=== PATIENT | male | born 1970 | race Caucasian/White ===

== ENCOUNTER 2018-09-26 14:55 | Emergency (ER) | payer MEDICAID ==
[~2018-09-26] VITALS: Ht 180.3 cm; Wt 117.9 kg
--- NOTE | ~2018-09-26 | EKG ---
[place], [place] ELECTROCARDIOGRAM REPORT NAME: CAPO GARCIA UNIT #: [id number] ROOM: DOCTOR: EPIPHANY DRAFT REPORT BIRTHDATE: [birth year] [facility] Test Date: 2018-09-26 Test Time: 14:59:49 Pat Name: CAPO GARCIA Department: Room: Gender: Ac/Dc Rewinder: : 1970 Requested By: STEVEN GUTIÉRREZ Order Number: [id number] Reading MD: Francisco Negro MD Measurements Intervals Brillion Rate: 118 P: 80 CO: 150 QRS: 65 QRSD: 81 T: 58 QT: 305 QTc: 428 Interpretive Statements Sinus tachycardia Probable left atrial enlargement Electronically Signed On 09-27-2018 12:42:33 PDT by Francisco Negro MD CM:EKGRPT:ELECTROCARDIOGRAM REPORT [id number] STEVEN GARCIA DRAFT REPORT STEVEN GUTIÉRREZ MD
[2018-09-26 15:13] LABS: BASO # 0.1 10*3/uL (0.0-0.1); BASO % 0.8 % (0.0-1.0); EOS # 0.3 10*3/uL (0.0-0.4); EOS % 3.4 % (1.0-4.0); HEMATOCRIT 48.6 % (42.0-52.0); HEMOGLOBIN 15.5 g/dl (14.0-18.0); LYMPH # 2.6 10*3/uL (1.3-4.4); LYMPH % 30.6 % (27.0-41.0); MEAN CELL VOLUME 87.3 fl (80.0-94.0); MEAN CORPUSCULAR HGB 27.8 pg (27.0-31.0); MEAN CORPUSCULAR HGB CONC 31.9 g/dl (33.0-37.0); MEAN PLATELET VOLUME 10.5 fl (9.6-12.3); MONO # 0.5 10*3/uL (0.1-1.0); MONO % 5.9 % (3.0-9.0); NEUT # 4.9 10*3/uL (2.3-7.9); NEUT % 59.1 % (47.0-73.0); PLATELET COUNT AUTOMATED 311 10*3/uL (130-400); RED BLOOD COUNT 5.57 10*6/uL (4.50-5.90); RED CELL DISTRI WIDTH 14.4 % (0-14.5); WHITE BLOOD COUNT 8.3 10*3/uL (4.8-10.8)
[2018-09-26 15:22] LABS: ACT PARTIAL THROMBO TIME 26.6 SECONDS (20.8-31.5); INTERNATIONAL NORM RATIO 1.1 (2.0-3.5)
[2018-09-26 15:39] VITALS: BP 152/99
[2018-09-26 15:42] LABS: ALBUMIN 3.8 gm/dl (3.1-4.5); ALKALINE PHOSPHATASE 129 U/L (45-117); BUN 12 mg/dl (7-24); CHLORIDE 107 mmol/L (98-107); CREATININE 0.99 mg/dL (0.70-1.30); POTASSIUM 4.3 mmol/L (3.5-5.1); SGOT/AST 17 IU/L (3-35); SGPT/ALT 30 U/L (12-78); SODIUM 141 mmol/L (136-145); TOTAL PROTEIN 8.7 gm/dL (6.4-8.2)
[2018-09-26 15:44] LABS: TROPONIN I < 0.015 ng/ml (<0.045)
[2018-09-26] MEDS ORDERED: PREDNISONE50 MG PO (15:58)
[2018-09-26] MEDS ORDERED: Ipratropium Brom3 ML INH (15:58)
[2018-09-26] MEDS ORDERED: PROVENTIL HFA6.7 GM INH (15:58)
== END 2018-09-26 16:05 | disposition home or self-care (01) ==
LOC: ED 14:55
PROVIDERS: Emergency Medicine
DX: J44.1 Chronic obstructive pulmonary disease with (acute) exacerbation (principal); F17.200 Nicotine dependence, unspecified, uncomplicated; Z91.011 Allergy to milk products; Z88.1 Allergy status to other antibiotic agents

== ENCOUNTER → 2019-02-10 | Outpatient (CLI) | payer OTHER ==
[~2019-02-10] MED LIST: CEPHALEXIN500 M1 PO; Ipratropium Brom3 ML INH; PREDNISONE50 MG PO; PROVENTIL HFA6.7 GM INH; SEPTDS PO
--- NOTE | ~2019-02-10 | PF ---
[place], [place] PULMONARY FUNCTION TEST NAME: CAPO GARCIA UNIT #: [id number] ROOM: DOCTOR: SLIM WATSON MD,HENRY BIRTHDATE: [birth year] DOS: 02/10/2019 ORDERED BY: Юлия Ballard, nurse practitioner. HISTORY: The patient recorded 48-year-old male, height of 72 inches, weight of 270 pounds, BMI 36.6 with a diagnosis reported for moderate bronchial asthma. The patient was also reported diagnosis of COPD as well. Symptoms actively reported are shortness of breath with exertion and frequent wheezing. Tobacco use noted 1 pack of cigarettes per day for 35 years. SPIROMETRY: The FVC of 2.88 liters, 53% predicted value, FEV1 of 1.52 liters is 36% predicted value. Ratio of FEV1/FVC postbronchodilator 58%, 27% improvement noted in FEV1 and 16% improvement in the FVC post-bronchodilator test. Flow volume was suggestive of obstructive lung disease with partial reversibility as well. LUNG VOLUME: Thoracic gas volume recorded 120%, residual volume 170%, total lung capacity 88%, RV/TLC ratio 191%. The patient's lung diffusion recorded 78%, mildly decreased without correction of carbon monoxide hemoglobin values. The patient's airway resistance, passive conductance was noted normal without any improvement postbronchodilator test. FINAL IMPRESSION: Current test was suggestive of evidence of diagnosis consistent with severe chronic obstructive pulmonary disease and bronchial asthma. Clinical correlation would be advised. HENRY SMALLS MD CM:PFREPORT:PULMONARY FUNCTION TEST 1020 40 HENRY WATSON MD
== END | disposition home or self-care (01) ==
LOC: CP 12:56
DX: J45.40 Moderate persistent asthma, uncomplicated (principal); J43.9 Emphysema, unspecified; F17.210 Nicotine dependence, cigarettes, uncomplicated; R53.83 Other fatigue

== ENCOUNTER 2019-02-13 09:35 | Emergency (ER) | payer OTHER ==
[~2019-02-13] VITALS: Ht 182.8 cm; Wt 117.9 kg
[2019-02-13 09:35] VITALS: BP 146/95
[~2019-02-13 09:35] MED LIST changes: -CEPHALEXIN500 M1 PO; -SEPTDS PO
[2019-02-13] MEDS ORDERED: SEPTDS PO (09:58)
[2019-02-13] MEDS ORDERED: CEPHALEXIN500 M1 PO (09:58)
== END 2019-02-13 10:04 | disposition home or self-care (01) ==
LOC: ED 09:35
DX: L73.2 Hidradenitis suppurativa (principal); R07.89 Other chest pain; J44.9 Chronic obstructive pulmonary disease, unspecified; E78.5 Hyperlipidemia, unspecified; F17.200 Nicotine dependence, unspecified, uncomplicated; Z91.011 Allergy to milk products; Z88.1 Allergy status to other antibiotic agents

== ENCOUNTER 2020-05-20 11:33 | Emergency (ER) | payer OTHER ==
[~2020-05-20] VITALS: Ht 180.3 cm; Wt 122.5 kg
[~2020-05-20 11:33] MED LIST changes: +CEPHALEXIN500 M1 PO; +SEPTDS PO
[2020-05-20 11:38] VITALS: BP 145/89
[2020-05-20] MEDS ORDERED: TYLENOL325 M1 PO (11:53)
[2020-05-20] MEDS ORDERED: CYCLOBENZAPRINE10 MG PO (11:53)
[2020-05-20] MEDS ORDERED: NAPROSYN500 MG PO (11:53)
== END 2020-05-20 12:36 | disposition home or self-care (01) ==
LOC: ED 11:33
DX: S30.861A Insect bite (nonvenomous) of abdominal wall, initial encounter (principal); M54.41 Lumbago with sciatica, right side; E66.9 Obesity, unspecified; J44.9 Chronic obstructive pulmonary disease, unspecified; Z87.891 Personal history of nicotine dependence; Z88.1 Allergy status to other antibiotic agents; Z91.012 Allergy to eggs; W57.XXXA Bitten or stung by nonvenomous insect and other nonvenomous arthropods, initial encounter; Y93.89 Activity, other specified; Y92.89 Other specified places as the place of occurrence of the external cause; Y99.8 Other external cause status

== ENCOUNTER → 2024-08-08 | Outpatient (CLI) | payer OTHER ==
[~2024-08-08] MED LIST changes: +CYCLOBENZAPRINE10 MG PO; +NAPROSYN500 MG PO; +TYLENOL325 M1 PO
[2024-08-08 18:20] LABS: BASO % 0.5 % (0.0-1.0); EOS # 0.2 10*3/uL (0.0-0.4); EOS % 1.9 % (1.0-4.0); HEMATOCRIT 43.1 % (42.0-52.0); MEAN CELL VOLUME 87.8 fl (80.0-94.0); MEAN CORPUSCULAR HGB 27.3 pg (27.0-31.0); MEAN CORPUSCULAR HGB CONC 31.1 g/dl (33.0-37.0); MEAN PLATELET VOLUME 10.6 fl (9.6-12.3); MONO # 0.5 10*3/uL (0.1-1.0); MONO % 6.4 % (3.0-9.0); NEUT # 5.9 10*3/uL (2.3-7.9); NEUT % 69.4 % (47.0-73.0); PLATELET COUNT AUTOMATED 337 10*3/uL (130-400); RED BLOOD COUNT 4.91 10*6/uL (4.50-5.90); RED CELL DISTRI WIDTH 14.2 % (0-14.5); WHITE BLOOD COUNT 8.5 10*3/uL (4.8-10.8)
[2024-08-08 18:32] LABS: ALKALINE PHOSPHATASE 89 U/L (46-116); BUN 10 mg/dl (9-23); CHLORIDE 104 mmol/L (98-107); CHOLESTEROL 158 mg/dL (<200); LDL CHOLESTEROL 86 mg/dL (9-159); POTASSIUM 4.3 mmol/L (3.4-5.1); SGPT/ALT 19 U/L (5-49); TOTAL PROTEIN 8.5 gm/dL (6.0-8.0); TRIGLYCERIDES 76 mg/dl (<150)
== END | disposition home or self-care (01) ==
LOC: LAB 17:46
PROVIDERS: ATTEND Nurse Practitioner Family
DX: E11.9 Type 2 diabetes mellitus without complications (principal); E55.9 Vitamin D deficiency, unspecified; J45.40 Moderate persistent asthma, uncomplicated

== ENCOUNTER → 2025-03-22 | Outpatient (CLI) | payer OTHER ==
[2025-03-22 16:42] LABS: BASO # 0.1 10*3/uL (0.0-0.1); BASO % 1.2 % (0.0-1.0); EOS # 0.1 10*3/uL (0.0-0.4); EOS % 2.8 % (1.0-4.0); MEAN CELL VOLUME 87.2 fl (80.0-94.0); MEAN CORPUSCULAR HGB 27.0 pg (27.0-31.0); MEAN PLATELET VOLUME 10.9 fl (9.6-12.3); MONO # 0.2 10*3/uL (0.1-1.0); MONO % 5.6 % (3.0-9.0); NEUT # 2.5 10*3/uL (2.3-7.9); NEUT % 58.1 % (47.0-73.0); NUCLEATED RED BLOOD CELL 0.0 % (0.0-0.0); NUCLEATED RED BLOOD CELL 0.0 10*3/uL (0.0-0.0); PLATELET COUNT AUTOMATED 305 10*3/uL (130-400); RED CELL DISTRI WIDTH 14.0 % (0-14.5)
[2025-03-22 17:00] LABS: BUN 13 mg/dl (9-23); LDL CHOLESTEROL 164 mg/dL (9-159); SGPT/ALT 14 U/L (5-49)
== END | disposition home or self-care (01) ==
LOC: LAB 12:38
PROVIDERS: ATTEND Nurse Practitioner Family
DX: I10 Essential (primary) hypertension (principal); J45.40 Moderate persistent asthma, uncomplicated; E55.9 Vitamin D deficiency, unspecified; E11.9 Type 2 diabetes mellitus without complications; E78.5 Hyperlipidemia, unspecified; Z76.89 Persons encountering health services in other specified circumstances